=== PATIENT | male | born 1960 | race Asian ===

== ENCOUNTER 2021-10-12 09:58 | Emergency (ER) | payer OTHER ==
[~2021-10-12] VITALS: Ht 162.6 cm; Wt 68.2 kg
[~2021-10-12 09:58] MED LIST: BUDE180H IH; MECL-160 PO
[2021-10-12] MEDS ORDERED: KETOROLAC TROMETHAMINE 30 MG/ML VIAL IVP ONE (14:15)
[2021-10-12] MEDS ORDERED: ACETAMINOPHEN 500 MG TABLET PO ONE (14:15)
[2021-10-12] MEDS ORDERED: SODIUM CHLORIDE 0.9% 1,000 ML IV ONE (14:15)
[2021-10-12] MEDS ORDERED: INSLAN SQ (14:44)
[2021-10-12] MEDS ORDERED: AMLO5TAB66 PO (14:44)
[2021-10-12] MEDS ORDERED: SIMV10TA97 PO (14:44)
[2021-10-12] MEDS ORDERED: GABA-1181 PO (14:44)
[2021-10-12] MEDS ORDERED: LISI5TAB21 PO (14:44)
[2021-10-12] MEDS ORDERED: SERT-439 PO (14:44)
[2021-10-12] MEDS ORDERED: TAMS-13 PO (14:44)
[2021-10-12] MEDS ORDERED: CARV3.1231 PO (14:44)
[2021-10-12] MEDS ORDERED: SITA1TAB6 PO (14:44)
[2021-10-12 15:09] LABS: COVID AG,FIA SOURCE NASAL SWAB
[2021-10-12 15:46] VITALS: BP 117/76
[2021-10-12 15:48] LABS: INFLUENZA TYPE A NEGATIVE FOR TYPE A (NEGATIVE); INFLUENZA TYPE B NEGATIVE FOR TYPE B (NEGATIVE)
== END 2021-10-12 16:50 | disposition home or self-care (01) ==
LOC: EMS 09:58
DX: R51.9 Headache, unspecified (principal); E11.9 Type 2 diabetes mellitus without complications; Z79.899 Other long term (current) drug therapy; Z20.822 Contact with and (suspected) exposure to COVID-19
CPT/HCPCS: 82962; 87426; 87804; 93005; 96361; 96374; 99284; J1885

== ENCOUNTER 2022-04-26 07:09 | Emergency (ER) | payer OTHER ==
[~2022-04-26] VITALS: Ht 162.6 cm; Wt 68.2 kg
[~2022-04-26 07:09] MED LIST changes: +AMLO5TAB66 PO; -BUDE180H IH; +CARV3.1231 PO; +GABA-1181 PO; +INSLAN SQ; +LISI5TAB21 PO; -MECL-160 PO; +SERT-439 PO; +SIMV10TA97 PO; +SITA1TAB6 PO; +TAMS-13 PO
[2022-04-26] MEDS ORDERED: MECLIZINE HCL 25 MG TABLET PO ONE (07:45)
[2022-04-26 08:30] VITALS: BP 130/84
[2022-04-26] MEDS ORDERED: MECL-134 PO (08:48)
== END 2022-04-26 09:00 | disposition home or self-care (01) ==
LOC: EMS 07:09
DX: E11.9 Type 2 diabetes mellitus without complications (principal); N20.0 Calculus of kidney
CPT/HCPCS: 70450; 82962; 99284

== ENCOUNTER 2023-01-10 11:28 | Emergency (ER) | payer OTHER ==
[~2023-01-10] VITALS: Ht 162.6 cm; Wt 75.0 kg
[~2023-01-10 11:28] MED LIST changes: +MECL-134 PO; -TAMS-13 PO; +TAMS0.4C34 PO
[2023-01-10 11:35] VITALS: TEMP 98.4
[2023-01-10] MEDS ORDERED: CEPH-558 PO (13:59)
[2023-01-10] MEDS ORDERED: DOXY-354 PO (14:00)
[2023-01-10 14:12] VITALS: BP 126/70; PULSE 80; RESP 16
== END 2023-01-10 14:13 | disposition home or self-care (01) ==
LOC: EMS 11:40
DX: R21 Rash and other nonspecific skin eruption (principal); E11.9 Type 2 diabetes mellitus without complications; Z79.899 Other long term (current) drug therapy
CPT/HCPCS: 99283; Z7502